=== PATIENT | male | born 1945 | race Caucasian/White ===

== ENCOUNTER → 2023-08-11 | Outpatient (CLI) | payer OTHER ==
[~2023-08-11] MED LIST: MECL-302 PO
== END | disposition home or self-care (01) ==
LOC: RAH 12:50
PROVIDERS: ATTEND Internal Medicine Cardiovascular Disease
DX: I51.89 Other ill-defined heart diseases (principal); R07.9 Chest pain, unspecified; R55 Syncope and collapse
CPT/HCPCS: 93306

== ENCOUNTER → 2023-08-18 | Outpatient (CLI) | payer OTHER ==
[~2023-08-18] MED LIST changes: +REGADENOSON 0.4 MG/5 ML PF SYG IVP ONE
== END | disposition home or self-care (01) ==
LOC: SHCH 08:21
PROVIDERS: ATTEND Internal Medicine Cardiovascular Disease
DX: R07.9 Chest pain, unspecified (principal); R55 Syncope and collapse
CPT/HCPCS: 78452; 96374; 93017; J2785; A9500 ×2

== ENCOUNTER → 2024-07-26 | Outpatient (CLI) | payer OTHER ==
[~2024-07-26] MED LIST changes: -REGADENOSON 0.4 MG/5 ML PF SYG IVP ONE
[2024-07-26] MEDS: REGADENOSON 0.4 MG/5 ML PF SYG IVP ONE (13:40)
== END | disposition home or self-care (01) ==
LOC: SHCH 07:54
PROVIDERS: ATTEND Internal Medicine Cardiovascular Disease
DX: I25.10 Atherosclerotic heart disease of native coronary artery without angina pectoris (principal); I25.2 Old myocardial infarction
CPT/HCPCS: 78452; 93017; J2785; A9500 ×2